=== PATIENT | female | born 1990 | race Hispanic/Latino ===

== ENCOUNTER 2018-05-06 19:03 | Inpatient (IN) | payer OTHER ==
[2018-05-06 19:32] VITALS: BMI 25.8
[2018-05-06] MEDS ORDERED: Lactated Ringer's 1,000 ML IV ONE (19:32)
[2018-05-06] MEDS ORDERED: Penicillin G Potassium 5 MU in Sodium Chloride 0.9% 50 ML IVPB ONE (19:32)
--- NOTE | 2018-05-06 19:43 | OBADHP ---
Datetime: 05/06/2018 19:38 Admit Comment, IP Provider: Patient is a @ 40.5 wks, suspected ROM since earlier this evening. No vaginal bleeding, +FM, no ctxns. History of GBS positive, otherwise no antepartum issues, no medic al problems, no surgeries, no allergies, no medication VE=grossly ruptured, /- [id number] mod per, +accels, no decels TOCO = ctxning q 2-3 mins A/P 1. Patient admitted to labor and delivery, ROM and in early labor. IVF, CBC, type and screen 2. PCN for GBS prophlaxis 3. CEFM and TOCO 4. Patient would like an epidural for pain when feeling uncomfortable 5. Will re-evaluate as necessary Pelvic Type - PN: Adequate Extremities - PN: Normal Abdomen - PN: Normal Back - PN: Normal Breast - PN: Normal Lungs - PN: Normal Heart - PN: Normal Thyroid - PN: Normal Neurologic - PN: Normal HEENT - PN: Normal General - PN: Normal FHR - Baseline A Provider: 150 Contraction Comments Provider: q 2-3 mins Pool Provider: Positive Nitrazine Provider: Positive Vital Signs Provider: Reviewed; Within Normal Limits IP Chief Complaint: Uterine contractions; Suspected ruptured membranes NICHD Variability Prov Fetus A: Moderate 6-25bpm NICHD Accel Fetus A IP Provider: [id number] NICHD Decel Fetus A IP Provider: None Dilatation, Provider: 4 Effacement, Provider: 70 Station, Provider: -2 Genitourinary Exam: Normal DTRs - PN: Normal IP Adm Impression: Term, intrauterine IP Admit Plan: Admit to unit; Initiate labor protocol
[2018-05-06] MEDS ORDERED: Penicillin G 5 Million Unit Vial IVPB ONE (20:15)
[2018-05-06 20:30] LABS: BASO % 0.2 % (0.0-2.0); EOS # 0.1 K/uL (0.0-0.7); HEMOGLOBIN 10.1 g/dL (12.0-16.0); LYMPH # 1.5 K/uL (1.0-4.3); LYMPH % 10.6 % (20.0-40.0); MEAN CELL VOLUME 82.9 fl (81.0-99.0); MEAN CORPUSCULAR HGB CONC 32.5 g/dL (33.0-37.0); MEAN PLATELET VOLUME 9.6 fl (7.2-11.7); MONO % 7.2 % (0.0-10.0); NEUT # 11.6 K/uL (1.8-7.0); NRBC % 0.1 % (0.0-0.0); RBC 3.76 Mil/uL (3.80-5.20); RED CELL DISTRIBUTION WIDTH 13.3 % (11.5-14.5); WHITE BLOOD COUNT 14.3 K/uL (4.8-10.8)
[2018-05-06] MEDS ORDERED: Fentanyl/Bupivacaine HCl 250 ML EPI ONE (22:11)
[2018-05-06] MEDS ORDERED: Oxytocin 30 UNITS in Sodium Chloride 0.9% 500 ML IV ONE (23:13)
[2018-05-07] MEDS ORDERED: Benzocaine/Menthol SPRAY TOP PRN (09:11)
[2018-05-07] MEDS ORDERED: Oxycodone/Acetaminophen 5/325 mg Tab PO PRN ×2 (09:11→11:03)
[2018-05-07] MEDS ORDERED: DiphenhydrAMINE 50 mg/ml Inj IVP PRN (11:03)
--- NOTE | 2018-05-07 16:24 | OBDS ---
DELIVERY PERSONNEL Delivery Doctor: Aaron Riley DO Head Well Puller: Silvia Roman RN Anesthesiologist: Nola Calderon MD MATERNAL INFORMATION Delivery Anesthesia: Local; Epidural Medications in Delivery: Pitocin 30units/ Methirgine 0.2 Estimated Blood Loss (ml): 500 Placenta Cultured: No Maternal Complications: None Provider Comments: OB Hospitalist on-call Over intact perineum, of live male . Infant was crying spontaneously and bulb suctione d. Infant was placed on mother's chest for skin to skin. First degree laceration was repaired. Lef t labial laceration was repaired as above. Placenta was delivered intact spontaneously. Pitocin sta rted. Vaginal bleeding noted. Methergine was given for atonic uterus. VB continued. Cervical lace ration was noted at [address] Andriy Oliva was available for assistance/retraction...Laceration was re paired with 90.0 VIcryl Rapide sutures - locking and figure of 8. Hemostasis assured EBL 500cc LABOR SUMMARY EDC: 05/01/2018 00:00 No. Babies in Womb: 1 Attempted: No Labor Anesthesia: None LABOR INFORMATION Reason for Induction: Not Applicable Onset of Labor: 05/06/2018 23:09 Complete Dilatation: 05/07/2018 03:27 Oxytocin: N/A Group B Beta Strep: Positive Antibiotics # of Doses: 3 Antibiotics Time of Last Dose: 7:00 Steroids Given: None Reason Steroids Not Administered: Not Applicable MEMBRANES Membranes Rupture Method: Spontaneous Rupture of Membranes: 05/06/2018 17:45 Length of Rupture (hrs): 14.50 Amniotic Fluid Color: Clear Amniotic Fluid Amount: Large Amniotic Fluid Odor: Normal STAGES OF LABOR Stage 1 hrs: 4 Stage 1 min: 18 Stage 2 hrs: 4 Stage 2 min: 48 Stage 3 hrs: 0 Stage 3 min: 23 Total Time in Labor hrs: 9 Total Time in Labor min: 29 VAGINAL DELIVERY Episiotomy: None Laceration Extension: First Degree Laceration Type: Perineal; Cervical Other Laceration: Left labial laceration Laceration Repair: Yes Laceration Repair Note: first degree repaired with 3.0 Vicryl Rapide; left labial laceratoin with 2. 0 vicryl rapide...Cervical laceratoin at 9 o'clock reparied with 0 Vicryl Rapide suture Initial Vag Sponge Count: 20 Final Vag Sponge Count: 20 Initial Vag Sharps Count: 7 Final Vag Sharps Count: 7 Sponge Count Correct: Yes Sharps Count Correct: Yes Count Comment: Laps 20 BABY A INFORMATION Infant Delivery Date/Time: 05/07/2018 08:15 Method of Delivery: Vaginal Born in Route : No : N/A Forceps: N/A Vacuum Extraction: N/A Shoulder Dystocia : No SHOULDER DYSTOCIA BABY A Delivery Date/Time: 05/07/2018 08:15 PRESENTATION/POSITION BABY A Presentation: Cephalic (Annotations: Data stored by CPN on behalf of user) Cephalic Presentation: Vertex (Annotations: Data stored by CPN on behalf of user) Breech Presentation: N/A (Annotations: Data stored by CPN on behalf of user) PLACENTA INFORMATION BABY A Placenta Delivery Time : 05/07/2018 08:38 Placenta Method of Delivery: Spontaneous Placenta Status: Delivered (Annotations: Data stored by CPN on behalf of user) SCORES BABY A Heart Rate 1 min: >100 bpm Resp Effort 1 min: Good Cry Reflex Irritability 1 min: Cough or Sneeze or Pulls Away Muscle Tone 1 min: Active Motion Color 1 min: Body Krupp, Extremities Blue Resuscitation Effort 1 min: Tactile Stimulation SCORE 1 MIN: 9 Heart Rate 5 min: >100 bpm Resp Effort 5 min: Good Cry Reflex Irritability 5 min: Cough or Sneeze or Pulls Away Muscle Tone 5 min: Active Motion Color 5 min: Body Krupp, Extremities Blue Resuscitation Effort 5 min: Tactile Stimulation SCORE 5 MIN: 9 INFANT INFORMATION BABY A Gestational Age at Delivery: 40.0 Gestational Status: Term Infant Outcome : Liveborn Condition : Stable Infant Sex: Male IDENTIFICATION/MEDS BABY A ID Band Number: [id number] ID Band Location: Left Leg; Left Arm WEIGHT/LENGTH BABY A Birthweight (gms): 3710 Weight (lb): 8 Infant Weight (oz): 3 CORD INFORMATION BABY A No. Cord Vessels: 3 Nuchal Cord : Around Neck x1, Loose (Annotations: Data stored by CPN on behalf of user) Cord Blood Taken: N/A Infant Suction: None ASSESSMENT BABY A Infant Complications: None Physical Findings at Delivery: Within Normal Limits Respirations: Appears Normal Linking Machine Operator/ALS Called : No Care By: Silvia Figueroa/Eladia Rollins Transferred To: Remains with Mother
[2018-05-08 06:16] LABS: BASO # 0.1 K/uL (0.0-0.2); BASO % 0.4 % (0.0-2.0); EOS # 0.3 K/uL (0.0-0.7); EOS % 1.9 % (0.0-4.0); HEMOGLOBIN 7.3 g/dL (12.0-16.0); LYMPH # 1.9 K/uL (1.0-4.3); LYMPH % 12.5 % (20.0-40.0); MEAN CELL VOLUME 83.4 fl (81.0-99.0); MEAN CORPUSCULAR HGB CONC 33.6 g/dL (33.0-37.0); MEAN PLATELET VOLUME 9.1 fl (7.2-11.7); MONO # 1.4 K/uL (0.0-0.8); MONO % 9.1 % (0.0-10.0); NEUT # 11.6 K/uL (1.8-7.0); NEUT % 76.1 % (50.0-75.0); RBC 2.62 Mil/uL (3.80-5.20); RED CELL DISTRIBUTION WIDTH 13.3 % (11.5-14.5); WHITE BLOOD COUNT 15.3 K/uL (4.8-10.8)
--- NOTE | 2018-05-08 14:35 | OBPPN ---
Datetime: 05/08/2018 14:30 PP Pain Prov: Within normal limits PP Nausea Prov: Denies PP Flatus Prov: Yes PP Breasts Prov: Not Done PP Heart Prov: Normal PP Lungs Prov: Normal PP Abdomen/Uterus Prov: Normal PP Lochia Prov: Not Done PP Vulva/Perineum Prov: Not Done PP CVA Tenderness Prov: Normal PP Extremities Prov: Normal PP Impression Prov: Normal progression PP Progress Note Prov: Patient doing well reports minimal lochia pain well-controlled Vital signs stable afebrile Uterus firm below the umbilicus day #1 Ambulate, analgesia, anticipate discharge in a.m., informed consent obtained Vital Signs Provider PP: Reviewed
[2018-05-09 13:42] LABS: BASO % 0.4 % (0.0-2.0); EOS # 0.4 K/uL (0.0-0.7); EOS % 3.1 % (0.0-4.0); HEMOGLOBIN 8.8 g/dL (12.0-16.0); LYMPH % 14.8 % (20.0-40.0); MEAN CORPUSCULAR HEMOGLOBIN 27.8 pg (27.0-31.0); MEAN CORPUSCULAR HGB CONC 33.5 g/dL (33.0-37.0); MEAN PLATELET VOLUME 8.8 fl (7.2-11.7); MONO # 0.6 K/uL (0.0-0.8); MONO % 4.7 % (0.0-10.0); NEUT # 10.3 K/uL (1.8-7.0); RBC 3.16 Mil/uL (3.80-5.20); RED CELL DISTRIBUTION WIDTH 13.8 % (11.5-14.5); WHITE BLOOD COUNT 13.4 K/uL (4.8-10.8)
[2018-05-10 05:38] VITALS: BP 125/73; PULSE 87; RESP 18; TEMP 98.4; O2SAT 97
== END 2018-05-09 23:50 | disposition home or self-care (01) | DRG 775 ==
LOC: H.EROB2 19:03 → H.L&D 19:32 → H.OB/GYN 05-07 12:32
PROVIDERS: ADMIT Obstetrics & Gynecology; ATTEND Obstetrics & Gynecology
PROC: 4A1HXCZ Monitoring of Products of Conception, Cardiac Rate, External Approach (ICD-10-PCS; 2018-05-06)
PROC: 10E0XZZ Delivery of Products of Conception, External Approach (ICD-10-PCS; principal; 2018-05-07)
PROC: 0UQMXZZ Repair Vulva, External Approach (ICD-10-PCS; 2018-05-07)
PROC: 0HQ9XZZ Repair Perineum Skin, External Approach (ICD-10-PCS; 2018-05-07)
DX: O48.0 Post-term pregnancy (principal); O62.2 Other uterine inertia; O70.0 First degree perineal laceration during delivery; O69.81X0 Labor and delivery complicated by cord around neck, without compression, not applicable or unspecified; O99.824 Streptococcus B carrier state complicating childbirth; Z37.0 Single live birth; Z3A.40 40 weeks gestation of pregnancy